=== PATIENT | female | born 1960 | race Caucasian/White ===

== ENCOUNTER 2017-11-14 23:39 | Emergency (ER) | payer BC ==
[~2017-11-14] VITALS: Ht 167.6 cm; Wt 95.0 kg
[2017-11-14] MEDS ORDERED: SODIUM CHLORIDE 0.9% 1,000 ML IV ONE (23:49)
[2017-11-14] MEDS ORDERED: KETOROLAC 30MG/ML VIAL IV STA (23:49)
[2017-11-15] MEDS ORDERED: ASPIRIN 81MG TABLET PO ONE
[2017-11-15 00:29] LABS: BASOPHILS % 2.3 % (0.0-2.0); EOSINOPHILS % 4.3 % (0.0-5.0); HEMATOCRIT. 40.7 % (36.0-48.0); LYMPHOCYTES % 25.7 % (20.0-50.0); MEAN CORPUSCULAR HEMOGLOBIN 28.2 pg (28.0-32.0); MEAN CORPUSCULAR VOLUME 82.2 fL (81.0-99.0); MEAN PLATELET VOLUME 8.3 fl (7.4-10.4); MONOCYTES % 6.3 % (2.0-8.0); NEUTROPHILS % 61.4 % (40.0-76.0); PLATELET 346 x1000/uL (130-400); RED BLOOD CELL COUNT 4.95 mill/uL (4.2-5.4); RED CELL DISTRIBUTION WIDTH 14.4 % (11.6-14.6)
[2017-11-15 00:33] LABS: CHLORIDE 105 mEq/L (98-107)
[2017-11-15 00:38] LABS: D-DIMER 0.63 mg/L FEU (<0.50); ETHANOL BLOOD < 10 mg/dL
[2017-11-15 00:41] LABS: HCG SCREEN NEGATIVE
[2017-11-15 00:43] LABS: *AMPHETAMINES SCREEN URINE NEGATIVE (NEGATIVE); *BARBITURATES SCREEN URINE NEGATIVE (NEGATIVE)
[2017-11-15 00:44] LABS: *COCAINE SCREEN URINE NEGATIVE (NEGATIVE); CANNABINOID URINE SCREEN NEGATIVE (NEGATIVE); OPIATES URINE SCREEN NEGATIVE (NEGATIVE)
[2017-11-15 00:45] LABS: PHENCYCLIDINE URINE SCREEN NEGATIVE (NEGATIVE)
[2017-11-15 00:46] LABS: METHADONE URINE SCREEN NEGATIVE (NEGATIVE)
[2017-11-15 00:54] LABS: *BENZODIAZEPINES SCREEN URINE NEGATIVE (NEGATIVE)
[2017-11-15] MEDS ORDERED: HYDROCODONE/ACETAMINOPHEN 5/325MG TABLET PO ONE (01:30)
[2017-11-15] MEDS ORDERED: LIDOCAINE 5% PATCH TOP NR (01:38)
[2017-11-15] MEDS ORDERED: SODIUM CHLORIDE 0.9% 1,000 ML IV ONE (01:45)
[2017-11-15 07:01] VITALS: BP 128/70
== END 2017-11-15 07:24 | disposition home or self-care (01) ==
LOC: ER 23:39 → CANBEDREQ 11-15 07:46
DX: N64.4 Mastodynia (principal); E86.0 Dehydration; R07.9 Chest pain, unspecified; Z79.82 Long term (current) use of aspirin; Z85.3 Personal history of malignant neoplasm of breast
CPT/HCPCS: 36415; 71045; 80053; 80305; 83690; 83880; 84484; 84703; 85025; 85379; 85610; 93005; 96361; 96374; 99285; G0482; J1885; J7030; Z7610